=== PATIENT | female | born 1995 | race Caucasian/White ===

== ENCOUNTER 2019-01-11 04:17 | Emergency (ER) | payer SELFPAY ==
[~2019-01-11] VITALS: Ht 160 cm; Wt 53.3 kg
[2019-01-11 04:24] VITALS: BP 122/65; PULSE 95; RESP 18; Ht 160 cm; Wt 53.3 kg
[2019-01-11] MEDS ORDERED: ONDANSETRON (ODT) 4 MG TAB ODT STA (05:37)
[2019-01-11] MEDS ORDERED: LIDOCAINE 1% (MDV) 10 ML INJ INJ STA (06:19)
[2019-01-11] MEDS ORDERED: DIPHTH/TET/ACEL PERTUSS (ADULT) 0.5 ML VIAL IM* ONE (06:30)
[2019-01-11] MEDS ORDERED: LIDOCAINE 1% (MDV) 20 ML INJ INJ STA (06:40)
[2019-01-11] MEDS ORDERED: IBUP-1542 PO (07:37)
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
== END 2019-01-11 08:16 | disposition home or self-care (01) ==
LOC: FTE 04:17
DX: S01.01XA Laceration without foreign body of scalp, initial encounter (principal); S02.2XXA Fracture of nasal bones, initial encounter for closed fracture; W25.XXXA Contact with sharp glass, initial encounter; Y92.89 Other specified places as the place of occurrence of the external cause; Z23 Encounter for immunization
CPT/HCPCS: 70450; 70486; 90471; 90715